=== PATIENT | male | born 1955 | race Caucasian/White ===

== ENCOUNTER 2024-10-04 14:29 | Emergency (ER) | payer OTHER ==
[~2024-10-04] VITALS: Ht 172.7 cm; Wt 80.0 kg
[2024-10-04 14:38] VITALS: O2SAT 99
[2024-10-04] MEDS ORDERED: DILTIAZEM HCL 5MG/ML 5ML VIAL IV ONE (14:45)
[2024-10-04 15:29] LABS: BASOPHILS % 0.6 % (0.0-2.0); EOSINOPHILS % 2.8 % (0.0-5.0); HEMATOCRIT. 46.5 % (42.0-52.0); HEMOGLOBIN. 15.7 g/dL (14.0-18.0); LYMPHOCYTES % 23.4 % (20.0-50.0); MEAN CORPUSCULAR HEMOGLOBIN 31.2 pg (28.0-32.0); MEAN CORPUSCULAR HGB CONC 33.8 g/dL (31.0-37.0); MEAN CORPUSCULAR VOLUME 92.6 fL (80.0-94.0); MEAN PLATELET VOLUME 8.3 fl (7.4-10.4); MONOCYTES % 7.8 % (2.0-8.0); NEUTROPHILS % 65.4 % (40.0-76.0); PLATELET 201 x1000/uL (130-400); RED BLOOD CELL COUNT 5.02 mill/uL (4.7-6.1); RED CELL DISTRIBUTION WIDTH 13.8 % (11.6-14.6); WHITE BLOOD COUNT 5.4 x1000/uL (4.5-11.0)
[2024-10-04 15:32] LABS: CHLORIDE 107 mEq/L (98-107); POTASSIUM 3.8 mEq/L (3.5-5.1); SODIUM 142 mEq/L (136-145)
[2024-10-04 15:33] LABS: CALCIUM 9.8 mg/dL (8.7-10.4); CARBON DIOXIDE 29 mEq/L (21-32)
[2024-10-04 15:36] LABS: PARTIAL THROMBOPLASTIN TIME 30.5 sec (23.4-31.0); PROTHROMBIN TIME 10.7 sec (9.6-11.0)
[2024-10-04 15:38] LABS: GLUCOSE 94 mg/dL (70-105); UREA NITROGEN BLOOD 11 mg/dL (9-23)
[2024-10-04 15:39] LABS: TROPONIN I HIGH SENSITIVITY 4 ng/L (3.0-53)
[2024-10-04] MEDS: ASPIRIN 81MG EC TABLET PO ONE (16:34)
[2024-10-04] MEDS: DILTIAZEM HCL 5MG/ML 5ML VIAL IV NR (16:45)
[2024-10-04] MEDS: DILTIAZEM HCL 60MG TABLET PO ONE (17:33)
[2024-10-04 18:03] VITALS: BP 126/81; PULSE 60; RESP 20; TEMP 36.66960; O2SAT 98
== END 2024-10-04 18:27 | disposition short-term general hospital (02) ==
LOC: ER 14:29 → CANBEDREQ 16:27 → ER 18:27
DX: I48.91 Unspecified atrial fibrillation (principal)
CPT/HCPCS: 99285; 96374; 71045; 80048; 83880; 83735; 85025; 85610; 85730; 84484; 36415; 93005; J3490